=== PATIENT | female | born 2000 | race Caucasian/White ===

== ENCOUNTER 2019-06-09 22:00 | Inpatient (IN) ==
[2019-06-10] MEDS ORDERED: Famotidine 20 MG/2 ML VIAL IVP PRN (00:16)
[2019-06-10] MEDS ORDERED: *HR* Nalbuphine 10 MG/ML AMPUL IVP PRN (00:16)
[2019-06-10] MEDS ORDERED: Naloxone 0.4 MG/ML INJ IVP PRN (00:16)
[2019-06-10] MEDS ORDERED: Metoclopramide 10 MG/2 ML VIAL IVP PRN (00:16)
[2019-06-10] MEDS ORDERED: Ondansetron 4 MG/2 ML VIAL IVP PRN (00:16)
[2019-06-10] MEDS ORDERED: Ringers Solution, Lactated 1,000 ML IVC SCH (00:30)
[2019-06-10] MEDS ORDERED: miSOPROStol 25 MCG TABLET PO PRN (00:37)
[2019-06-10] MEDS ORDERED: Lidocaine 1% 20 ML MDV INFILT PRN (00:37)
[2019-06-10 01:36] LABS: Basophils # 0.1 K/mcL (0.0-0.2); Basophils % 0.4 %; Eosinophils # 0.1 K/mcL (0.0-0.6); Eosinophils % 0.7 %; Hematocrit 36.4 % (35.3-44.9); Hemoglobin 12.4 g/dL (11.5-15.4); Immature Granulocytes % 0.8 % (0-4); Lymphocytes # 1.9 K/mcL (0.6-4.6); Lymphocytes % 14.9 %; Mean Corpuscular HGB Conc 34.1 g/dL (31.6-35.5); Mean Corpuscular Hemoglobin 29.3 pg (28.0-33.3); Mean Corpuscular Volume 86.1 fL (83.0-100.0); Mean Platelet Volume 12.1 fL (9.4-12.4); Monocytes # 1.1 K/mcL (0.0-1.3); Monocytes % 8.4 %; Neutrophils # 9.5 K/mcL (1.6-8.9); Platelet Count 164 K/mcL (140-400); Red Blood Count 4.23 M/mcL (3.82-4.97); Red Cell Distribution Width 12.8 % (11.5-14.5); Segmented Neutrophils % 74.8 %; White Blood Count 12.6 K/mcL (4.3-11.1)
[2019-06-10 01:46] LABS: Amphetamine Screen,Urine Negative ng/mL (Cutoff=1000); Barbiturate Screen,Urine Negative ng/mL (Cutoff=200); Benzodiazepines Screen,Urine Negative ng/mL (Cutoff=200); Cannabinoid Screen,Urine Negative ng/mL (Cutoff = 50); Cocaine Screen,Urine Negative ng/mL (Cutoff= 300); Opiate Screen,Urine Negative ng/mL (Cutoff=300); Phencyclidine Screen,Urine Negative ng/mL (Cutoff=25)
--- NOTE | 2019-06-10 02:13 | OB/GYN History & Physical ---
Date of Encounter: 06/10/19 Time of Encounter: 01:51 Assessment and Plan (1) 37 weeks gestation of Current visit: Yes Status: Acute Admit for IOL at recommendation of M - Double cervical lau balloon inserted after reactive NST. 60ml sterile water instilled into uterine balloon, 60mL sterile water instilled into vaginal balloon. - PO Cytotec if ctx not regular. - Pitocin induction when appropriate - Recheck cervix in 4 hours and remove lau if appropriate. - AROM when appropriate - Epidural or IV pain medication when patient requests. - Anticipate (2) NST (non-stress test) reactive Current visit: Yes Status: Acute FHR 130 bpm, moderate variability, +15x15 accels, no decels. (3) Short femur of fetus on ultrasound Current visit: Yes Status: Acute Short long bones according to [facility] ultrasounds. Close Pediatric follow up recommended. Patient declined genetic testing in first trimester. 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 (5) Intrauterine growth restriction (IUGR) affecting care of mother, third trimester, single gestation Current visit: Yes Status: Acute Ultrasound by [facility] 06/09 showed growth at <10th percentile with elevated doppler flow. Admitted for IOL per [facility] recommendation. POC in collaboration with on-call [facility] Dr. John alatorre. History of Present Illness Chief complaint: IOL at 37 weeks HPI: Ms. Morejon is a 18 year old female who presents this morning for IOL at 37w0d after MFM recommendation today. She has been followed by [facility] for short long bones in the fetus and IUGR. Today, her growth scan showed the growth <10% with elevated dopplers so [facility] recommended prompt delivery. Case discussed with Dr. Lopez, the OB physician on-call. Patient follows with the [facility] along with physician collaboration due to abnormalities. Velamentous cord insertion has also been identified in this but was not visualized on the May ultrasound. Patient does report positive movement and denies any fluid leakage. She does report one blood clot today but no further bleeding. In office exam was 2/50/-2. Induction consent was obtained and patient was agreeable to double cervical lau balloon after discussion and information given. Blood type AB+ GBS negative HbSAG negative Rubella Immune Varicella Immune HIV negative T. Pall negative. Past Med Surg Social Fam HX - Past Medical History Source: patient Medical history: migraine Psychiatric history: anxiety, depression, PTSD - Past Surgical History Surgical History: other Additional surgical history: right ring finger sx, knee scope. Dental surgery. - Social History Smoking Status: Never smoker Smokeless Tobacco Status: No Alcohol use: none Drug use: none Current living situation: Home - Independent, With Family Activity Level: Independent ambulation Recent Out of Country Travel Within the Last 8 Weeks: No Exposure or Possible Exposure to Illness During Travel: No - Family History Mother Hx Family Endocrine Disorder: Yes (Diabetic) Obstetrical History - Pregnancies : 1 Para: 0 Term: 0 : 0 Ab's: 0 Livin Medications and Allergies Buspirone HCl [Buspar] 10 mg PO TID 06/18/17 [History] Citalopram [CeleXA] 30 mg PO DAILY 06/18/17 [History] hydrOXYzine HCl [Hydroxyzine HCl] 50 mg PO HS 06/18/17 [History] Allergy/AdvReac Type Severity Reaction Status Date / Time No Known Allergies Allergy Verified 01/23/19 11:03 Review of System OB All systems PM: reviewed and no additional remarkable complaints except as stated Exam - Constitutional Constitutional: well developed, well nourished, no acute distress (Patient is very nervous), average body habitus - HEENT HEENT: Normocephaly, Mucus Membranes Moist - Neck Neck exam: full ROM - Lungs Respiratory exam: CTAB - Cardiovascular Cardiovascular exam: RRR, +S1, +S2 - Abdomen Abdomen: Present: bowel sounds normal, gravid, non tender - Extremities Extremities exam: full ROM, normal capillary refill, normal inspection - Vulva Vulva: bilateral: normal - Vagina Vagina: Present: normal moisture, discharge (Yellow thin discharge) - Cervix Dilation: 2 Effacement: 50 Station: -2 - Uterus Uterus exam: Present: normal size, normal contour - Anus/Rectum Anus/Rectum: Present: normal perianal skin Results Result Diagrams: 06/10/19 00:37 Abnormal lab results WBC 12.6 K/mcL (4.3-11.1) H 06/10/19 00:37 Neutrophils # 9.5 K/mcL (1.6-8.9) H 06/10/19 00:37 All other labs normal. - VTE Reasons for not Prescribing Prophylaxis: Treatment not Indicated - Low risk for VTE
--- NOTE | 2019-06-10 06:38 | OB Labor Progress Note ---
Date of Encounter: 06/10/19 Time of Encounter: 06:36 Labor Progress Note - Subjective Subjective: Patient resting at intervals. Reports rare painful contractions. - Vital Signs Vital Signs: WNL - Cervix Cervix: 6/75/-2 - Heart Tones Heart Tones: FHR 130 bpm, moderate variability, +15x15 accels, no decels. - [place]: Irregular - Interventions Interventions: SVE Cervical lau balloon removed. - Plan Plan: Start Pitocin Epidural when patient desires AROM when appropriate Anticipate
[2019-06-10] MEDS ORDERED: Oxytocin 20 units/ LR 1000 mL 20 UNIT/1,000 ML BAG IVC SCH ×2 (06:45→18:18)
[2019-06-10] MEDS ORDERED: Epidural Premix (fent/bupiv) 110 ML EP ONE (07:09)
--- NOTE | 2019-06-10 07:54 | Anesthesia Procedures ---
Date of Encounter: 06/10/19 Time of Encounter: 07:16 Procedures: Anesthesia - Epidural/Spinal Patient ID/Chart reviewed: Yes Patient examined: Yes OB Eval: Gestational age: 37 OB Eval: : 1 OB Eval: Contractions: Non-stressed pattern Consent Obtained: Yes Supplemental Oxygen: None/Room Air Site Prep: Aseptic Technique, Sterile prep and drape, 0.5% Chlorhexidine/Alcohol Patient position: upright Local Anesthetic: Lidocaine 1% Amount of Local Anesthetic used: 2 Touhy Needle Gauge: 18 Touhy Needle Depth (cm): 7 Catheter Depth at Skin (cm): 11 Test Dose (1.5% Lido + Epi): Volume given (mls): 3 Test Dose Result: Negative Loading Dose: Other: 10ml from solution Loading Dose Administered: Thru Catheter Infusion Med: 0.125% Bupivacaine w/ 2 mcg/ml Fentanyl Infusion Rate (mls/hr): [address]: Tegaderm, Tape Interspace Used: L3-L4 Loss of Resistance (JUDITH): Yes (saline) Blood: No CSF: Yes (25g purposeful ) Paresthesia: No Procedure: vss though out procedure, fhr per staff.
--- NOTE | 2019-06-10 07:58 | Anesthesia Evaluation PreOp ---
Date of Encounter: 06/10/19 Time of Encounter: 07:11 - Past History Planned Operation: del, 37wk induction Pulmonary History: Denies Any Significant HX SPECIAL SYSTEMS TECHNICIAN History: Other (PTSD, anxiety, depression,) Other Medical History: Denies Any Significant HX Anesthesia History: No Prior Anesthetic Complications, Past Anesthesia (no known problems, denies family hx.) Alcohol Use: none Drug use: none Medications and Allergies Buspirone HCl [Buspar] 10 mg PO TID 06/18/17 [History] Citalopram [CeleXA] 30 mg PO DAILY 06/18/17 [History] hydrOXYzine HCl [Hydroxyzine HCl] 50 mg PO HS 06/18/17 [History] Scopolamine Patch [Transderm-Scop] 1.5 mg TD Q72H 06/10/19 [History] Allergy/AdvReac Type Severity Reaction Status Date / Time No Known Allergies Allergy Verified 01/23/19 11:03 Anesthesia Results - Labs 06/10/19 00:37 Anesthesia Exam - HEENT Pupil (Motor): Pupils equal Mallampati: II Teeth: Normal Oral Opening: Greater than 3 - SPECIAL SYSTEMS TECHNICIAN LOC: Oriented SPECIAL SYSTEMS TECHNICIAN Motor: Normal RUE, Normal LUE, Normal RLE, Normal LLE, Normal Face SPECIAL SYSTEMS TECHNICIAN Sensory: Normal: RUE, LUE, RLE, LLE, Face - Cardiac Rhythm: Regular Murmur: None - Pulmonary Breath Sounds: bilateral Clear Respiratory Effort: Symmetrical Anesthesia Assess/Plan ASA Score: 2 Level of consciousness: Cooperative, Oriented Anesthetic Plan: General, Spinal, Epidural Monitoring Plan: Standard Monitors Recovery Plan: PACU
[2019-06-10] MEDS ORDERED: Epidural Premix (fent/bupiv) 110 ML EP SCH (08:15)
--- NOTE | 2019-06-10 09:39 | OB Labor Progress Note ---
Date of Encounter: 06/10/19 Time of Encounter: 09:37 Labor Progress Note - Subjective Subjective: Patient resting comfortably with epidural in place. Discussed POC with Dr. Mckeon. - Cervix Cervix: 7/80/-1 - Heart Tones Heart Tones: 125 bpm moderate variability +15x15 accels no decels noted. Cat 1 tracing - [place]: 2-4 min apart - Interventions Interventions: SVE, AROM moderate amount clear fluid. Patient tolerated well - Plan Physician notified: No Plan: Continue labor management
[2019-06-10] MEDS ORDERED: Ropivacaine/PF 0.2% 20 ML VIAL ONE (13:23)
[2019-06-10] MEDS ORDERED: *HR* FentaNYL (PF) 100 MCG/2 ML VIAL ONE (13:56)
[2019-06-10] MEDS ORDERED: *HR* Ropivacaine/PF 0.5% 20 ML VIAL ONE (13:56)
--- NOTE | 2019-06-10 15:00 | Anesthesia Progress Note ---
Date of Encounter: 06/10/19 Time of Encounter: 14:02 Anesthesia Note - Note Note: 06/10/19 14:56 vss c/o hot spot midline right above pevic bone, questioned team about OB concerns, and repositioning with staff at BS, patient bolus with 6ml 0.2% rop plain with no relief, pulled cath back 1-2cm, and re dressed and re-bolus with different position with 100mcg fent and 5ml 0.5% rop aseptic though out, vss though out boluses were 35-45min apart. family at BS.
--- NOTE | 2019-06-10 15:32 | OB/GYN Procedure Note ---
Delivery - Delivery Date: 06/10/19 Provider: Stephanie Reid Intrapartum events: none Delivery induction: AROM, oxytocin, lau Delivery monitor: external FHT, external uterine Anesthesia: epidural Quantitated Blood Loss: 200 - Infant (s) A Delivery Date: 06/10/19 Delivery Time: 14:54 Presentation: vertex Position: ARTIE Route of delivery: Gender: Female Viability: Viable Pounds: 5 Ounces: 6 Weight Gram: 2445 kg at 1 minute: 8 at 5 mins: 9 Shoulder Dystocia: not encountered Specimens collected: cord blood Placenta: spontaneous, uterine exploration Cord: 3 umbilical vessels, other (cord around the shoulders, delivered through) - Repair Episiotomy: none Laceration Description: Periurethral (left periurethral repaired with 4-0 vicryl) - Complications Delivery complications: none - Disposition Mom disposition: stable in LDR disposition: stable in LDR - Comments Comments: Called to LDR patient uncomfortable with contractions. SVE complete and +2. Patient was placed in stirrups and prepped for vaginal delivery. Under maternal effort patient spontaneously delivered a viable female infant over an intact perineum. No nuchal cord, shoulder dystocia or meconium noted. Infant was placed on maternal abdomen. Cord was clamped and cut after pulsations ceased. A left periurethral was noted and repaired with 4-0 vicryl. Placenta delivered spontaneously and visually intact. A velamentous cord insertion was noted. Uterus was explored for retained products and blood clots. None were noted. Pericare was provided. All counts correct. EBL 200. Both mother and infant stable in LDR for 2 hour recovery.
[2019-06-10] MEDS ORDERED: Acetaminophen 325 MG TABLET PO PRN (18:18)
[2019-06-10] MEDS ORDERED: Lanolin 7 G OINT...G. TP PRN (18:18)
[2019-06-10] MEDS ORDERED: Benzocaine/Menthol 56 GM AEROSOL SPRAY TP PRN (18:18)
[2019-06-10] MEDS: Ibuprofen 600 MG TABLET PO PRN (21:41)
--- NOTE | 2019-06-11 06:59 | Discharge Summary ---
Date of Encounter: 06/11/19 Time of Encounter: 06:57 - Discharge Diagnosis (1) Vaginal delivery Priority: Primary Status: Acute Comments: Continue routine care discharge home today follow up with [facility] in 4-6 weeks (2) Breast feeding status of mother Priority: Secondary Status: Acute Comments: support prn - Discharge Medications Prescriptions: New Breast Pump [BREAST PUMP] 1 each .ROUTE AD #1 each Lanolin [Lansinoh] 1 appl TP TID PRN oint...g. PRN Reason: Sore Nipples Ibuprofen [Motrin] 600 mg PO Q6HR PRN #60 tablet PRN Reason: Cramping Continued Citalopram [CeleXA] 30 mg PO DAILY hydrOXYzine HCl [Hydroxyzine HCl] 50 mg PO HS Buspirone HCl [Buspar] 10 mg PO TID Discontinued Scopolamine Patch [Transderm-Scop] 1.5 mg TD Q72H Home Medications: Buspirone HCl [Buspar] 10 mg PO TID 06/18/17 [History] Citalopram [CeleXA] 30 mg PO DAILY 06/18/17 [History] hydrOXYzine HCl [Hydroxyzine HCl] 50 mg PO HS 06/18/17 [History] Breast Pump [BREAST PUMP] 1 each .ROUTE AD #1 each 06/11/19 [Rx] Ibuprofen [Motrin] 600 mg PO Q6HR PRN #60 tablet 06/11/19 [Rx] Lanolin [Lansinoh] 1 appl TP TID PRN oint...g. 06/11/19 [Rx] Allergies/Adverse Reactions: Allergy/AdvReac Type Severity Reaction Status Date / Time No Known Allergies Allergy Verified 01/23/19 11:03 Data Procedures and tests throughout hospitalization: Laboratory Tests 06/10/19 06/10/19 00:37 01:10 WBC 12.6 H RBC 4.23 Hgb 12.4 Hct 36.4 MCV 86.1 MCH 29.3 MCHC 34.1 RDW 12.8 Plt Count 164 MPV 12.1 Immature Gran % 0.8 Seg Neutrophils % 74.8 Lymphocytes % 14.9 Monocytes % 8.4 Eosinophils % 0.7 Basophils % 0.4 Neutrophils # 9.5 H Lymphocytes # 1.9 Monocytes # 1.1 Eosinophils # 0.1 Basophils # 0.1 Urine Opiates Screen Negative Ur Buprenorphine Scrn Negative Ur Barbiturates Screen Negative Ur Phencyclidine Scrn Negative Ur Amphetamines Screen Negative U Benzodiazepines Scrn Negative Urine Cocaine Screen Negative U Marijuana (THC) Screen Negative Ur Drug Screen Interp See Below Date of admission: 06/10/19 00:11 Primary care physician: Tiffany Marte CNP Consults: 06/10/19 18:18 Consult to Marketing Ambassador [CONS] Routine Comment: Vaginal delivery, consult needed Discharging clinician: Stephanie Reid Anticipated date of discharge: 06/11/19 - Patient Status Disposition: Home, Self-Care Condition: Good Functional capacity at discharge: independent ambulation - Discharge Instructions Follow Up With: Tiffany Marte CNP [Primary Care Provider] - Stephanie Reid CNM [Non-Partnered Physician] - - Diet and Activity Activity: increase activity as tolerated Diet: regular diet Hospital Course Reason for admission: induction of labor Delivery: Episiotomy: none Laceration: other (left periurethral) Other procedures: none complications: none Discharge diagnosis: IUP at term delivered baby: female (breast feeding) Time Attestation: Total time spent providing and/or coordinating discharge services: Time Spent: Less than 30 minutes Exam - Constitutional Vitals: Temp Pulse Resp BP Pulse Ox 97.8 F 64 14 130/88 97 06/11/19 05:25 06/11/19 05:25 06/11/19 05:25 06/11/19 05:25 06/11/19 05:25 General appearance IM: A&O X 3, pleasant, answers questions appropriately - Respiratory Respiratory exam: Present: CTAB - Cardiovascular Cardiovascular exam IM: Present: RRR, +S1, +S2 - Uterine Tone: Firm Uterus Position: At Umbilicus, Midline - Extremities Exam Extremities exam IM: Present: full ROM, normal capillary refill, normal inspection - Neurological Exam Neurological exam: alert, oriented X3, reflexes normal
[2019-06-11 08:45] VITALS: BP 138/90
[2019-06-11] MEDS: Ibuprofen 600 MG TABLET PO PRN (08:46)
[2019-06-11] MEDS ORDERED: Prenatal Vit/FA 1 EACH TABLET PO SCH (09:00)
== END 2019-06-11 19:12 | disposition home or self-care (01) | DRG 560 ==
LOC: 1NENULAB 06-10 00:11 → 1NENUOBS 06-10 18:10
PROVIDERS: ADMIT Registered Nurse; ATTEND Registered Nurse